=== PATIENT | female | born 1990 | race Two or more races ===

== ENCOUNTER 2018-07-12 19:06 | Emergency (ER) | payer OTHER ==
--- NOTE | 2018-07-12 20:30 | ER Document Report ---
ED Headache - General Chief Complaint: Headache Stated Complaint: HEADACHE Time Seen by Provider: 07/12/18 20:19 Mode of Arrival: Ambulatory Information source: Patient, Relative Notes: Patient is a 28-year-old female comes emergency room complaining of migraine headache. Patient states this is on the right side of her head and then goes upward. She states it is the same as her usual migraine headaches that she can usually take Tylenol for and it goes away. This headache per patient has been around for 3 days and not getting any better. Again she is taken Tylenol for it and no relief. She states it has been years since she had to go to emergency room for her major headaches. Denies any vomiting but has been nauseated she is also been photophobic and auditory. TRAVEL OUTSIDE OF THE [place] IN LAST 30 DAYS: No - HPI Patient complains to provider of: Headache, "Migraine" Patient reports: Hx chronic headaches, Occasional migraines Onset: Other - 3 days Onset was: Cannot pinpoint Timing: Worse Quality of pain: Pressure, Sharp, Throbbing Severity: Severe Pain Level: 4 Preceding symptoms: Typical of prior aura(s) Associated symptoms: Photophobia. denies: Stiff neck Exacerbated by: Light, Noise, Movement Similar symptoms previously: Yes Recently seen / treated by doctor: No - Related Data Allergies/Adverse Reactions: No Known Allergies Allergy (Unverified 09/12/11 17:23) Past Medical History - General Information source: Patient - Social History Smoking Status: Never Smoker Cigarette use (# per day): No Chew tobacco use (# tins/day): No Smoking Education Provided: No Frequency of alcohol use: Occasional Drug Abuse: None Lives with: Family Family History: Reviewed & Not Pertinent - Immunizations Hx Diphtheria, Pertussis, Tetanus Vaccination: Yes Review of Systems - Review of Systems Constitutional: No symptoms reported EENT: No symptoms reported Cardiovascular: No symptoms reported Respiratory: No symptoms reported Gastrointestinal: No symptoms reported Genitourinary: No symptoms reported Female Genitourinary: No symptoms reported Musculoskeletal: No symptoms reported Skin: No symptoms reported Hematologic/Lymphatic: No symptoms reported Neurological/Psychological: Headaches Physical Exam - Vital signs Vitals: Temp Pulse Resp BP Pulse Ox 98.2 F 50 L 18 124/70 98 07/12/18 19:24 07/12/18 19:24 07/12/18 19:24 07/12/18 19:24 07/12/18 19:24 Interpretation: Bradycardic - Notes Notes: Patient well-nourished well-developed obese female no apparent distress on physical examination. She does appear somewhat uncomfortable and is sitting in a darkened room. - General General appearance: Alert In distress: None - HEENT Head: Normocephalic, Atraumatic Eyes: Normal Conjunctiva: Normal Cornea: Normal Extraocular movements intact: Yes Pupils: PERRL Ears: Normal External canal: Normal Tympanic membrane: Normal Sinus: Normal, Abnormal Nasal: Normal Mouth/Lips: Normal Mucous membranes: Normal Pharynx: Normal. No: Peritonsillar abscess, Post nasal drainage, Retropharyngeal abscess, Uvular edema, Potential airway comprom. Neck: Normal, Supple. No: Anterior cervical chain, Posterior cervical chain, Lymphadenopathy, Meningismus - Respiratory Respiratory status: No respiratory distress Chest status: Nontender Breath sounds: Normal. No: Rales, Rhonchi, Stridor, Wheezing Chest palpation: Normal - Cardiovascular Rhythm: Regular, Bradycardia Heart sounds: Normal auscultation Murmur: No - Extremities General upper extremity: Normal inspection, Nontender, Normal ROM, Normal strength General lower extremity: Normal inspection, Nontender, Normal ROM, Normal strength - Neurological Neuro grossly intact: Yes Cognition: Normal Orientation: AAOx4 [place] Coma Scale Eye Opening: Spontaneous [place] Coma Scale Verbal: Oriented Jovanny Coma Scale Motor: Obeys Commands Jovanny Coma Scale Total: 15 Speech: Normal - Skin Skin Temperature: Warm Skin Moisture: Dry Skin Color: Normal, [place] Course - Re-evaluation Re-evalutation: 07/12/18 20:42 I had a long discussion with patient about headaches. She is certain headache is similar to her other headaches however more intense. They will start behind the right eye and progresses up the front of the head and down. She denies any visual changes but photophobic in the most crippling to her at this point. Noises second. Had nausea no vomiting I am going to give her the cocktail that I used which is Toradol Benadryl and Compazine and send her home. - Vital Signs Vital signs: Temp Pulse Resp BP Pulse Ox 98.2 F 50 L 18 124/70 98 07/12/18 19:24 07/12/18 19:24 07/12/18 19:24 07/12/18 19:24 07/12/18 19:24 Discharge - Discharge Clinical Impression: Headache Qualifiers: Headache type: unspecified Headache chronicity pattern: acute headache Intractability: intractable Qualified Code(s): R51 - Headache Migraine Qualifiers: Migraine type: without aura Status migrainosus presence: without status migrainosus Intractability: intractable Qualified Code(s): G43.019 - Migraine without aura, intractable, without status migrainosus Condition: Stable Disposition: HOME, SELF-CARE Instructions: Use of Diphenhydramine, Toradol Injection ([facility]), Migraine Headache ([facility]), Headache ([facility]) Additional Instructions: Home and rest. Stay in a darkened area tonight. Medication should help with sleep and break the chain of the migraine headache. Should you have any increasing headache spike a fever or become concerned that this is not getting better in any way return to ER for recheck. Forms: Return to Work Referrals: LOCALMD,NO [Primary Care Provider] - Follow up as needed
[2018-07-12] MEDS ORDERED: KETOROLAC TROMETHAMINE 60 MG/2 ML SDV IM ONE (20:35)
[2018-07-12] MEDS ORDERED: DIPHENHYDRAMINE HCL 50 MG/ML VIAL IM ONE (20:35)
[2018-07-12] MEDS ORDERED: PROCHLORPERAZINE EDISYLATE INJ 10 MG/2 ML VIAL IM ONE (20:36)
[2018-07-12 20:52] VITALS: BP 127/70
== END 2018-07-12 20:51 | disposition home or self-care (01) ==
LOC: ER 19:06
DX: G43.019 Migraine without aura, intractable, without status migrainosus (principal)
CPT/HCPCS: 99283; 96372; J1200; J1885; J0780

== ENCOUNTER 2019-03-05 17:43 | Emergency (ER) | payer OTHER ==
[2019-03-05 17:58] VITALS: BP 116/97
[2019-03-05] MEDS ORDERED: IBUPROFEN 600 MG TABLET PO ONE (19:04)
[2019-03-05] MEDS ORDERED: OXYCODONE-ACETAMINOPHEN 5-325 MG TABLET PO ONE (19:04)
--- NOTE | 2019-03-05 19:24 | RADIOLOGY REPORT (SQ) ---
EXAM DESCRIPTION: HAND LEFT 3 VIEWS COMPLETED DATE/TIME: 03/05/2019 6:26 pm REASON FOR STUDY: sofa fell on hand COMPARISON: None. EXAM PARAMETERS: NUMBER OF VIEWS: Three views. TECHNIQUE: AP, lateral and oblique radiographic images acquired of the left hand. LIMITATIONS: None. FINDINGS: MINERALIZATION: Normal. BONES: Transverse fracture of the base of the 5th proximal phalanx. JOINTS: No effusions. SOFT TISSUES: No soft tissue swelling. No foreign body. OTHER: No other significant finding. IMPRESSION: Fracture of the 5th proximal phalanx. TECHNICAL DOCUMENTATION: JOB ID: [id number] [employer] ([email or web address])- All Rights Reserved Reading location - IP/workstation name: [email or web address]
--- NOTE | 2019-03-05 19:29 | ER Document Report ---
HPI - HPI Time Seen by Provider: 03/05/19 18:47 Pain Level: 5 Notes: Patient is an otherwise healthy 28-year-old female presenting with left digit pain. Patient reports injury occurred just prior to arrival. Patient reports she was helping her move a sofa when he dropped the sofa onto her hand crushing her hand in between the sofa and hardwood floor. She states she has applied ice to the area but is has not taken any other medications. - REPRODUCTIVE Reproductive: DENIES: : - MUSCULOSKELETAL Musculoskeletal: REPORTS: Extremity pain - left hand Past Medical History - General Information source: Patient - Social History Smoking Status: Former Smoker Frequency of alcohol use: Occasional Drug Abuse: None Family History: Reviewed & Not Pertinent Patient has suicidal ideation: No Patient has homicidal ideation: No - Medical History Medical History: Negative Renal/ Medical History: Denies: Hx Peritoneal Dialysis Past Surgical History: Reports: Hx Gynecologic Surgery - d&c - Immunizations Hx Diphtheria, Pertussis, Tetanus Vaccination: Yes Vertical Provider Document - CONSTITUTIONAL Notes: PHYSICAL EXAMINATION: GENERAL: Well-appearing, well-nourished and in no acute distress. HEAD: Atraumatic, normocephalic. EYES: Pupils equal round extraocular movements intact, conjunctiva are normal. ENT: Nares patent NECK: Normal range of motion LUNGS: No respiratory distress Musculoskeletal: Normal range of motion NEUROLOGICAL: Normal speech, normal gait. PSYCH: Normal mood, normal affect. SKIN: Swelling and ecchymosis noted to dorsal surface of left hand near the base of the fourth and fifth digits. Cap refill less than 3 seconds, normal motor and sensation at area of injury. - INFECTION CONTROL TRAVEL OUTSIDE OF THE [place] IN LAST 30 DAYS: No Course - Re-evaluation Re-evalutation: Fracture of the fifth proximal phalanx noted on x-ray. Patient's finger will be casey taped for immobilization. The patient's emergency department workup and current diagnosis were explained to the patient and or family. Follow-up instructions were provided. Medications if prescribed were discussed. Instructions for when to return to the emergency department including specific worrisome symptoms were discussed with the patient and/or family. - Vital Signs Vital signs: Temp Pulse Resp BP Pulse Ox 98.2 F 60 16 116/97 H 98 03/05/19 17:56 03/05/19 17:56 03/05/19 17:56 03/05/19 17:56 03/05/19 17:56 Procedures - Immobilization Left fifth digit Pre-Proc Neuro Vasc Exam: Normal Immobilizer type: Other Performed by: PCT Alignment checked and good: Yes Discharge - Discharge Clinical Impression: Phalanx, proximal fracture of finger Qualifiers: Encounter type: initial encounter Finger: little finger Fracture type: closed Fracture alignment: nondisplaced Laterality: left Qualified Code(s): S62.647A - Nondisplaced fracture of proximal phalanx of left little finger, initial encounter for closed fracture Condition: Stable Disposition: HOME, SELF-CARE Additional Instructions: Fractured Finger There is a fracture in your finger. The bone is straight and in good position to heal. The doctor has assessed the seriousness of the fracture and has explained your treatment plan. Usually the finger will be splinted until fracture healing is complete. This is usually about three or four weeks. At that time, the injured finger may be taped to the next finger to provide a moving splint for longer protection. The first few days after the injury, the finger should be kept elevated and cold (with ice packs). This decreases the swelling and pain. You should contact the doctor or return at once if pain or swelling become severe, or if the finger becomes numb. Some degree of bruising is normal with a finger fracture. There is a very small fracture at the end of your fifth digit. Please take ibuprofen 600 mg every 6 hours. Ice and elevate as outlined above. This should heal up on its own if you keep the casey tape in place. Forms: Return to Work
== END 2019-03-05 19:43 | disposition home or self-care (01) ==
LOC: ER 17:43
PROC: 2W3KX1Z Immobilization of Left Finger using Splint (ICD-10-PCS; principal; 2019-03-05)
DX: S62.647A Nondisplaced fracture of proximal phalanx of left little finger, initial encounter for closed fracture (principal); M79.645 Pain in left finger(s); X50.9XXA Other and unspecified overexertion or strenuous movements or postures, initial encounter; Z87.891 Personal history of nicotine dependence
CPT/HCPCS: 99283

== ENCOUNTER 2019-08-16 09:13 | Emergency (ER) | payer OTHER ==
--- NOTE | 2019-08-16 09:38 | ER Document Report ---
ED Medical Screen (RME) - General Chief Complaint: Dizziness Stated Complaint: DIZZINESS Time Seen by Provider: 08/16/19 09:34 Mode of Arrival: Wheelchair Information source: Patient Notes: 29-year-old female presents to ED for complaint of dizziness nausea and vomiting x2 today but is not nauseated now. 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 She denies any nausea vomiting or abdominal pain at this time. He denies any pain except for some tingling in her feet at this time. She states she has been dizzy according to the in the past but not for a long time. She does not smoke drink or use any illicit drugs. She was in 2009 and ended up with a D&C. She states her last menstrual period was around 30 of July. I have greeted and performed a rapid initial assessment of this patient. A comprehensive ED assessment and evaluation of the patient, analysis of test results and completion of medical decision making process will be conducted by an additional ED providers. TRAVEL OUTSIDE OF THE [place] IN LAST 30 DAYS: No - Related Data Allergies/Adverse Reactions: No Known Allergies Allergy (Verified 08/16/19 09:27) Past Medical History Renal/ Medical History: Denies: Hx Peritoneal Dialysis Past Surgical History: Reports: Hx Gynecologic Surgery - d&c - Immunizations Hx Diphtheria, Pertussis, Tetanus Vaccination: Yes Physical Exam - Vital signs Vitals: Temp Pulse Resp BP Pulse Ox 98.0 F 51 L 16 133/78 H 100 08/16/19 09:18 08/16/19 09:18 08/16/19 09:18 08/16/19 09:18 08/16/19 09:18 Course - Vital Signs Vital signs: Temp Pulse Resp BP Pulse Ox 98.0 F 51 L 16 133/78 H 100 08/16/19 09:18 08/16/19 09:18 08/16/19 09:18 08/16/19 09:18 08/16/19 09:18
[2019-08-16 10:18] LABS: ABSOLUTE BASOPHILS # (AUTO) 0.1 10^3/uL (0.0-0.2); ABSOLUTE LYMPHOCYTES (AUTO) 2.7 10^3/uL (0.5-4.7); ABSOLUTE MONOCYTES (AUTO) 0.5 10^3/uL (0.1-1.4); ABSOLUTE NEUT (AUTO) 5.8 10^3/uL (1.7-8.2); BASOPHILS % (AUTO) 0.6 % (0-2); EOSINOPHILS % (AUTO) 0.5 % (0-6); HEMATOCRIT 40.4 % (36.0-47.0); HEMOGLOBIN 13.7 g/dL (12.0-15.5); LYMPHOCYTES % (AUTO) 29.3 % (13-45); MEAN CORPUSCULAR HEMOGLOBIN 30.9 pg (27.0-33.4); MEAN CORPUSCULAR HGB CONC 33.9 g/dL (32.0-36.0); MEAN CORPUSCULAR VOLUME 91 fl (80-97); PLATELET COUNT 251 10^3/uL (150-450); RED BLOOD COUNT 4.43 10^6/uL (3.72-5.28); RED CELL DISTRIBUTION WIDTH 13.4 % (11.5-14.0); SEGMENTED NEUTROPHILS % (AUTO) 63.6 % (42-78); TOTAL CELLS COUNTED % (AUTO) 100 %; WHITE BLOOD COUNT 9.1 10^3/uL (4.0-10.5)
[2019-08-16 10:22] LABS: APPEARANCE,URINE CLEAR; BILIRUBIN,URINE NEGATIVE (NEGATIVE); COLOR,URINE COLORLESS; GLUCOSE, URINE NEGATIVE (NEGATIVE); KETONES,URINE NEGATIVE (NEGATIVE); PROTEIN,URINE NEGATIVE (NEGATIVE); URINE SPECIFIC GRAVITY 1.004; UROBILINOGEN,URINE NEGATIVE mg/dL (<2.0)
[2019-08-16 10:45] LABS: ALBUMIN 4.3 g/dL (3.5-5.0); ALKALINE PHOSPHATASE 56 U/L (38-126); ANION GAP 11 (5-19); ASPARTATE AMINO TRANSFERASE 21 U/L (14-36); BILIRUBIN,DIRECT 0.1 mg/dL (0.0-0.4); BILIRUBIN,TOTAL 0.3 mg/dL (0.2-1.3); BLOOD UREA NITROGEN 13 mg/dL (7-20); CALCIUM 9.6 mg/dL (8.4-10.2); CARBON DIOXIDE 25 mmol/L (22-30); CHLORIDE 105 mmol/L (98-107); GLUCOSE 82 mg/dL (75-110); POTASSIUM 4.3 mmol/L (3.6-5.0)
[2019-08-16] MEDS ORDERED: NORMAL SALINE 1000 ML 1,000 ML IV ONE (11:46)
--- NOTE | 2019-08-16 11:47 | ER Document Report ---
ED Dizziness/Weakness - General Chief Complaint: Dizziness Stated Complaint: DIZZINESS Time Seen by Provider: 08/16/19 09:34 Primary Care Provider: DANYA MILLER MD [NO LOCAL MD] - Follow up in 1 week (for primary care follow up) Mode of Arrival: Wheelchair TRAVEL OUTSIDE OF THE [place] IN LAST 30 DAYS: No - HPI Notes: 29-year-old female to the emergency department with complaints of near syncopal episode today just prior to arrival. 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 She states that she attempted to sit down outside and noted that she also was slightly diaphoretic. She does admit to an episode of vomiting this morning but it was prior to having this episode of near syncope. She denies actually passing out. She has had one other episode of syncope when she was a teenager at her . She denies any chest pain, shortness of breath, abdominal pain, nausea, urinary complaints, fevers, chills, recent cold. She states her last menstrual period was July 30 and she doubts that she is . She denies any other complaints. - Related Data Allergies/Adverse Reactions: No Known Allergies Allergy (Verified 08/16/19 09:27) Past Medical History - General Information source: Patient - Social History Smoking Status: Never Smoker Chew tobacco use (# tins/day): No Frequency of alcohol use: None Drug Abuse: None Family History: Reviewed & Not Pertinent Patient has suicidal ideation: No Patient has homicidal ideation: No Renal/ Medical History: Denies: Hx Peritoneal Dialysis Past Surgical History: Reports: Hx Gynecologic Surgery - d&c - Immunizations Hx Diphtheria, Pertussis, Tetanus Vaccination: Yes Review of Systems - Review of Systems Constitutional: Diaphoresis. denies: Chills, Fever EENT: No symptoms reported, Difficulty swallowing Cardiovascular: Other - Near syncope. denies: Chest pain, Palpitations, Heart racing, Dyspnea Respiratory: denies: Cough, Short of breath Gastrointestinal: See HPI, Nausea, Vomiting. denies: Abdominal pain, Diarrhea Genitourinary: No symptoms reported Female Genitourinary: No symptoms reported Musculoskeletal: No symptoms reported Skin: No symptoms reported Hematologic/Lymphatic: No symptoms reported Neurological/Psychological: No symptoms reported. denies: Seizure, Lost consciousness -: Yes All other systems reviewed and negative Physical Exam - Vital signs Vitals: Temp Pulse Resp BP Pulse Ox 98.0 F 51 L 16 133/78 H 100 08/16/19 09:18 08/16/19 09:18 08/16/19 09:18 08/16/19 09:18 08/16/19 09:18 Interpretation: Normal - General General appearance: Appears well, Alert In distress: None - HEENT Head: Normocephalic, Atraumatic Eyes: Normal Pupils: PERRL Ears: Normal External canal: Normal Tympanic membrane: Normal Sinus: Normal Nasal: Normal Mouth/Lips: Normal Mucous membranes: Normal Pharynx: Normal. No: Potential airway comprom. Neck: Normal, Supple. No: Lymphadenopathy, Meningismus - Respiratory Respiratory status: No respiratory distress Chest status: Nontender. No: Accessory muscle use Breath sounds: Normal. No: Rales, Rhonchi, Wheezing Chest palpation: Normal - Cardiovascular Rhythm: Regular Heart sounds: Normal auscultation Murmur: No Notes: No pitting edema - Abdominal Inspection: Normal Distension: No distension Bowel sounds: Normal Tenderness: Nontender. No: Tender, McBurney's point, Gordon's sign, Guarding, Rebound Organomegaly: No organomegaly - Back Back: Normal, Nontender. No: Deformity/step-off, CVA tenderness, Vertebra tenderness - Extremities General upper extremity: Normal inspection, Nontender, Normal color, Normal ROM, Normal temperature General lower extremity: Normal inspection, Nontender, Normal color, Normal ROM, Normal temperature, Normal weight bearing. No: Odalis's sign - Neurological Neuro grossly intact: Yes Cognition: Normal Orientation: AAOx4 [place] Coma Scale Eye Opening: Spontaneous [place] Coma Scale Verbal: Oriented [place] Coma Scale Motor: Obeys Commands Jovanny Coma Scale Total: 15 Speech: Normal Cranial nerves: Normal. No: Facial palsy, Forehead sparing, Gaze palsy, Sensory deficit, Tongue deviation Cerebellar coordination: Normal. 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 No: Pronator drift Sensory: Normal - Psychological Associated symptoms: Normal affect, Normal mood - Skin Skin Temperature: Warm Skin Moisture: Dry Skin Color: Normal Course - Vital Signs Vital signs: Temp Pulse Resp BP Pulse Ox 97.9 F 63 18 116/55 L 97 08/16/19 13:39 08/16/19 13:39 08/16/19 13:39 08/16/19 13:39 08/16/19 13:39 - Laboratory Result Diagrams: 08/16/19 09:50 08/16/19 09:50 - EKG Interpretation by Me Additional EKG results interpreted by me: 08/16/19 No STEMI, rate of 48, no ST changes. Discharge - Discharge Clinical Impression: Near syncope Condition: Stable Disposition: HOME, SELF-CARE Instructions: Dizziness ([facility]) Additional Instructions: REST AT HOME TODAY. PUSH FLUIDS. RETURN IF ANY EPISODES OF PASSING OUT, CHEST PAIN, SHORTNESS OF BREATH, OR ANY OTHER CONCERNS. Forms: Return to Work Referrals: DANYA MILLER MD [NO LOCAL MD] - Follow up in 1 week (for primary care follow up)
[2019-08-16 13:43] VITALS: BP 116/55
--- NOTE | 2019-08-16 17:08 | EKG REPORT ---
SEVERITY:- OTHERWISE NORMAL ECG - SINUS BRADYCARDIA ATRIAL PREMATURE COMPLEX : Confirmed by: Ruy Cook MD 16-Aug-2019 17:07:39
== END 2019-08-16 13:42 | disposition home or self-care (01) ==
LOC: ER 09:13
DX: R42 Dizziness and giddiness (principal); R55 Syncope and collapse; R61 Generalized hyperhidrosis
CPT/HCPCS: 93005; 99284; 96360; 36415; 83690; 84703; 85025; 80053; 81001; 93010; J7030